=== PATIENT | female | born 1985 | race Caucasian/White ===

== ENCOUNTER 2016-11-10 22:57 | Emergency (ER) | payer OTHER ==
[~2016-11-10] VITALS: Ht 149.9 cm; Wt 59.4 kg
[2016-11-10 23:21] VITALS: BP 123/80
--- NOTE | 2016-11-11 00:18 | NUR ---
Julieta case in [facility] - 11/11/16 at 0020 by LORI PT TAKEN TO BED 1
--- NOTE | 2016-11-11 01:02 | NUR ---
PT TAKEN TO BED 8
--- NOTE | 2016-11-11 01:16 | NUR ---
PATIENT PRESENTS TO ED WITH RT LOWER BACK PAIN SINCE THIS MORNING . PT STATES THE PAIN RADIATES DOWN HER RT LEG . DENIES N/V/D; SKIN IS PINK/WARM/DRY; AAOX4 WITH EVEN AND STEADY GAIT; LUNGS CLEAR BL; HR EVEN AND REGULAR; PT DENIES ANY FEVER, CP, SOB, OR COUGH AT THIS TIME; PATIENT STATES PAIN OF 8/10 AT THIS TIME; VSS; PATIENT POSITIONED FOR COMFORT; HOB ELEVATED; BEDRAILS UP X2; BED DOWN. ER MD MADE AWARE OF PT STATUS.
--- NOTE | 2016-11-11 01:43 | NUR ---
Dr. Brito evaluating patient at bedside.
[2016-11-11] MEDS ORDERED: DIAZEPAM 5 MG TAB PO ONE (01:45)
[2016-11-11] MEDS ORDERED: HYDROcodone/APAP 5/325 MG 1 TAB TAB PO ONE (01:45)
[2016-11-11] MEDS ORDERED: KETOROLAC 30 MG/ML VIAL IM ONE (01:45)
[2016-11-11 02:10] VITALS: BP 125/82
--- NOTE | 2016-11-11 02:10 | NUR ---
Patient discharged with v/s stable. Written and verbal after care instructions given and explained. Patient alert, oriented and verbalized understanding of instructions. Ambulatory with steady gait. All questions addressed prior to discharge. ID band removed. Patient advised to follow up with PMD. Rx of NAPROSYN, TYLENOL WITH CODEINE AND VALIUM given. Patient educated on indication of medication including possible reaction and side effects. Opportunity to ask questions provided and answered.
== END 2016-11-11 02:10 | disposition home or self-care (01) ==
LOC: MED 22:57
DX: M54.41 Lumbago with sciatica, right side (principal)
CPT/HCPCS: 81025; 96372; 99283; J1885

== ENCOUNTER 2018-07-28 13:11 | Emergency (ER) | payer OTHER ==
[~2018-07-28] VITALS: Ht 149.9 cm; Wt 63.3 kg
[2018-07-28 13:19] VITALS: BP 116/76
--- NOTE | 2018-07-28 13:25 | NUR ---
PT AMBULATES TO BED 2
--- NOTE | 2018-07-28 13:35 | NUR ---
33 YO F BIB W/ C/O INTERMITTENT SOB, UPPER CHEST PRESSURE EARLIER WHILE RESTING; HAD SIMILAR EPISODE THROUGHOUT THE WEEK. STATES SHE IS UNDER A LOT OF STRESS. PT W/ RR EVEN AND UNLABORED. LUNG SOUNDS BL CLEAR. O2 SAT 99% ROOM AIR AT THIS TIME. SPREAKING IN FULL AND COMPLETE SENTENCES. PT AAOX4, GCS 15, CMS INTACT. ABD SOFT, NON-TENDER, BOWEL SOUNDS ACTIVE X 4. AMBULATORY W/ STEADY GAIT. ER MD NOTIFIED OF PT STATUS. PT NEEDS MET, SAFETY PRECAUTIONS IN PLACE. WILL CONTINUE TO MONITOR.
--- NOTE | 2018-07-28 13:55 | NUR ---
Patient being evaluated by physician at bedside.
--- NOTE | 2018-07-28 14:19 | NUR ---
XRAY AT BEDSIDE
[2018-07-28 15:01] VITALS: BP 112/72
== END 2018-07-28 15:02 | disposition home or self-care (01) ==
LOC: MED 13:11
DX: R06.00 Dyspnea, unspecified (principal); R06.02 Shortness of breath; R42 Dizziness and giddiness; M54.30 Sciatica, unspecified side; F41.9 Anxiety disorder, unspecified
CPT/HCPCS: 71045; 93005; 99284; Q0092